=== PATIENT | female | born 1945 | race American Indian/Alaskan Native ===

== ENCOUNTER 2019-07-07 07:14 | Day surgery (SDC) | payer OTHER, MEDICARE ==
[~2019-07-07 07:14] MED LIST: SUBLIMAZE ONE; TETRACAINE 0.5% OD SCH; VERSED ONE
[2019-07-07] MEDS: VIGAMOX OD SCH ×3 (08:05→08:15)
[2019-07-07] MEDS: AK-Dilate OD SCH ×3 (08:05→08:15)
[2019-07-07] MEDS: MYDRIACYL OD SCH ×3 (08:05→08:15)
--- NOTE | 2019-07-07 08:20 | Anesthesia Day of Surgery ---
Anesthesia Day of Surgery - Day of Surgery Patient Examined: Yes Patient H&P Reviewed: Yes Patient is NPO: Yes
--- NOTE | 2019-07-07 08:25 | Anesthesia Consultation ---
Anesthesia Consult and Med Hx Date of service: 07/07/19 - Pulmonary Hx Smoking: No Hx Sleep Apnea: No (RYLEY PRE SCREEN LOW RISK) - Cardiovascular System Hx Hypertension: Yes (X 5) Hx Heart Murmur: Yes ( CHILD) - Gastrointestinal Hx Gastroesophageal Reflux Disease: Yes - Hematic Hx Anemia: Yes (NOT RECENT) - Other Systems Hx Cancer: No - Additional Comments Anesthesia Medical History Comments: PONV
[2019-07-07] MEDS ORDERED: ZOFRAN ONE (08:43)
[2019-07-07] MEDS ORDERED: PRED FORTE 1% OD NR (09:00)
--- NOTE | 2019-07-07 09:01 | Operative Report ---
Operative Report Operative Report: PATIENT'S NAME: DATE OF : DATE OF SURGERY: 07/07/2019 PREOPERATIVE DIAGNOSIS: Cataract right eye POSTOPERATIVE DIAGNOSIS: Same OPERATIVE PROCEDURE: Phacoemulsification with intraocular lens implantation, right eye SURGEON: Aditi Schultz M.D. AUTO PORTER SURGEON: Maggi Lens: [id number] 21.0 D ANESTHESIA: Monitored anesthesia care in combination with topical and intracameral anesthesia because of the established specific risk of reflux, arrhythmias, or anxiety attacks associated with ocular manipulation, as well as the difficulty of the astronomy professor to manage such potentially catastrophic events while simultaneously attempting to complete the surgical procedure and was deemed necessary for the patient's safety to have an Client Service Manager present during the procedure whenever possible. An Client Service Manager was utilized to regulate the intravenous sedation of the patient so the patient was cooperative yet not asleep in order for the patient to successfully maintain fixation of the eye on the operating light of the microscope. COMPLICATIONS: No surgical complications No blood loss. ALLERGIES: Codeine and latex statin PROGNOSIS: Excellent INDICATIONS FOR SURGERY: The patient is undergoing surgery in the hopes of eliminating or improving these visual difficulties. PROCEDURE: After arriving at the surgery center, the patient was given topical anesthetic and dilating drops, as noted in the record. The patient was then taken into the operating room and given more anesthetic drops. The eyelids, lashes, and lid margins were scrubbed with Betadine solution, and the patient was draped. The Nurse Client Service Manager administered IV sedation and monitored the patient during the procedure. The eye was then fixated with a 0.12, and a stab incision was made in the peripheral clear cornea into the anterior chamber. This was made on my left side. Viscoelastic was next used to fill the anterior chamber. The eye was once again fixated with the 0.12 forceps and a keratome was used make an incision in clear cornea peripherally on my right hand side temporally. The capsule forceps were used to open the central anterior capsule and then make a continuous round capsulotomy. Hydrodissection was carried out utilizing a cannula and balanced salt solution to delineate the cortical material from the capsule and the nucleus from the cortical material. The phaco tip was introduced into the eye and used to remove the anterior cortical material in the area of the capsulotomy. Then the phaco tip was buried into the nucleus, and a chopping instrument was introduced into the eye and used to provide countertraction in the nucleus between this instrument and the phaco tip fracturing the nucleus. This procedure was repeated multiple times, providing multiple small segments of the lens, and then the phaco tip was used to remove each of these segments. An I/A tip was then used to remove the remaining cortex. The anterior chamber was refilled with viscoelastic. An one-piece, acrylic intraocular lens was then placed into an inserting cartridge. The tip of the inserting cartridge was introduced into the keratome incision and into the anterior chamber. The implant was gently advanced through the cartridge and into the eye, where it unfolded, and both haptics were placed in the capsular bag, where it centered nicely and appeared to be well fixated. After placement of the intraocular lens, the I~and~A handpiece was placed back into the eye and used to remove the viscoelastic, including viscoelastic that was behind the optic of the intraocular lens. The anterior chamber was then filled with balanced salt solution, and hydration of the wound was used to cause swelling of the wound and more appropriate watertight closure. When the wound was found to be firm, the patient was asked to comment on how bright the light was. If there was no light perception at all or if the light was substantially dimmer than during the rest of the surgery, the amount of fluid in the eye was decompressed to lower the intraocular pressure until the patient could see the bright light again. This was done to avoid any damage or decreased blood flow to the optic nerve. MEDICATIONS APPLIED AT END OF SURGERY: One drop of Pred Forte and Vigamox The patient was given a shield to wear at night and was instructed not to rub or push on the eye. DISCHARGE SUMMARY: The patient was released in stable condition. The patient and those with the patient were given a written sheet of postoperative instructions and counseling on any abnormal laboratory studies. The patient is to see us tomorrow for follow-up in the office and is to call immediately for any difficulties. Aditi Schultz M.D. Date
--- NOTE | 2019-07-07 09:02 | Short Stay Summary ---
Short Stay Documentation Date of service: 07/07/19 - History H&P: obtained from office - Allergies and Medications Current Medications: Allergies codeine Allergy (Verified 07/06/19 14:48) Vomiting ezetimibe [From Zetia] Allergy (Verified 07/06/19 14:56) MUSCLE STIFFNESS latex Allergy (Verified 07/06/19 14:48) Swelling Zbfgqwd-Uwi-Maq Reductase Inhibitor Allergy (Verified 07/06/19 14:56) MUSCLE STIFFNESS Home Medications Medication Instructions Recorded Confirmed Last Taken Type Calcium Carbonate/Vitamin D3 1 each PO DAILY 07/06/19 07/06/19 07/06/19 History [Caltrate 600 Plus D3 Tablet] Denosumab [Prolia] 60 mg SQ Q2W 07/06/19 07/06/19 07/06/19 History Estradiol [Irma] 1 each TD QWEEK 07/06/19 07/06/19 07/06/19 History Ibuprofen [Motrin] 800 mg PO Q8HR PRN 07/06/19 07/06/19 07/06/19 History Multivit-Min/FA/Lycopen/Lutein 1 each PO DAILY 07/06/19 07/06/19 07/06/19 History [Centrum Silver Tablet] Quinapril HCl [Accupril] 40 mg PO DAILY 07/06/19 07/06/19 07/07/19 06:30 History amLODIPine [Norvasc] 5 mg PO DAILY 07/06/19 07/06/19 07/07/19 06:30 History Active Medications Acetazolamide (Diamox) 500 mg PO ONCE ONE Stop: 07/07/19 09:01 Moxifloxacin HCl (Vigamox) 1 drops OD Q5MIN FARRAH Stop: 07/07/19 15:00 Last Admin: 07/07/19 08:15 Dose: 1 drops Documented by: Phenylephrine HCl (Ak-Dilate) 1 drops OD Q5MIN FARRAH Stop: 07/07/19 15:00 Last Admin: 07/07/19 08:15 Dose: 1 drops Documented by: Prednisolone Acetate (Pred Forte 1%) 1 drops OD ONCE ONE Stop: 07/07/19 09:01 Tetracaine HCl (Tetracaine 0.5%) 1 drops OD Q5M FARRAH Stop: 07/07/19 15:00 Last Admin: 07/07/19 08:04 Dose: 1 drops Documented by: Tropicamide (Mydriacyl) 1 drops OD Q5MIN FARRAH Stop: 07/07/19 15:00 Last Admin: 07/07/19 08:15 Dose: 1 drops Documented by: - Brief post op/procedure progress note Date of procedure: 07/07/19 Pre-op diagnosis: right cataract Post-op diagnosis: same Procedure: Phacoemulsification with intraocular lens insertion right eye Anesthesia: MAC, local Surgeon: KASH OSORIO Estimated blood loss: none Pathology: none Condition: stable - Disposition Condition at discharge: Good Disposition: DC-01 TO HOME OR SELFCARE - Discharge Diagnoses (1) Cortical age-related cataract, right eye Status: Resolved Short Stay Discharge Plan Follow up with: RAMOS CHAMPION [Other] - 7 Days
[2019-07-07] MEDS ORDERED: DIAMOX PO ONE (09:30)
[2019-07-07 09:51] VITALS: BP 145/78
--- NOTE | 2019-07-07 20:18 | Post Anesthesia Evaluation ---
- Post Anesthesia Evaluation Patient Participated: Yes Airway Patent: Yes Stable Respiratory Function: Yes Nausea/Vomiting: No Temp > 96.8F: Yes Pain Manageable: Yes Adequeate Hydration: Yes Anesthesia Complications: No Block Receding Appropriately: Not Applicable Patient on Ventilator: No
== END 2019-07-07 09:55 | disposition home or self-care (01) ==
LOC: OR 07:14
DX: H25.011 Cortical age-related cataract, right eye (principal); E78.00 Pure hypercholesterolemia, unspecified; I10 Essential (primary) hypertension; Z88.5 Allergy status to narcotic agent; Z91.040 Latex allergy status; Z79.899 Other long term (current) drug therapy; Z98.890 Other specified postprocedural states; Z90.710 Acquired absence of both cervix and uterus; Z86.2 Personal history of diseases of the blood and blood-forming organs and certain disorders involving the immune mechanism; Z88.8 Allergy status to other drugs, medicaments and biological substances
CPT/HCPCS: 66984; J2250; J2405; J3010; V2632

== ENCOUNTER 2019-07-21 06:39 | Day surgery (SDC) | payer OTHER, MEDICARE ==
[~2019-07-21 06:39] MED LIST changes: -SUBLIMAZE ONE; -TETRACAINE 0.5% OD SCH; +TETRACAINE 0.5% OS SCH; -VERSED ONE
--- NOTE | 2019-07-21 07:14 | Anesthesia Day of Surgery ---
Anesthesia Day of Surgery - Day of Surgery Patient Examined: Yes Patient H&P Reviewed: Yes Patient is NPO: Yes
[2019-07-21] MEDS: MYDRIACYL OS SCH ×3 (07:15→07:25)
[2019-07-21] MEDS: AK-Dilate OS SCH ×3 (07:15→07:25)
[2019-07-21] MEDS: VIGAMOX OS SCH ×3 (07:15→07:25)
--- NOTE | 2019-07-21 07:15 | Anesthesia Consultation ---
Anesthesia Consult and Med Hx Date of service: 07/21/19 - Airway Anesthetic Teeth Evaluation: Good ROM Head & Neck: Adequate Mental/Hyoid Distance: Adequate Mallampati Class: Class II Intubation Access Assessment: Good - Pre-Operative Health Status ASA Pre-Surgery Classification: ASA2 Proposed Anesthetic Plan: MAC - Cardiovascular System Hx Hypertension: Yes (2013) Hx Heart Murmur: Yes - Central Nervous System Hx Psychiatric Problems: No - Gastrointestinal Hx Gastroesophageal Reflux Disease: Yes - Additional Comments Anesthesia Medical History Comments: Had other eye done here two weeks ago. PONV-give Zofran
[2019-07-21] MEDS ORDERED: VERSED ONE (07:30)
[2019-07-21] MEDS ORDERED: SUBLIMAZE ONE (07:30)
--- NOTE | 2019-07-21 08:16 | Operative Report ---
Operative Report Operative Report: PATIENT'S NAME: DATE OF : DATE OF SURGERY: 07/21/2019 PREOPERATIVE DIAGNOSIS: Cataract left eye POSTOPERATIVE DIAGNOSIS: Same OPERATIVE PROCEDURE: Phacoemulsification with intraocular lens implantation, left eye SURGEON: Aditi Schultz M.D. SOLE MOLDING MACHINE OPERATOR SURGEON: Maggi Lens: [id number] 21.5 D ANESTHESIA: Monitored anesthesia care in combination with topical and intracameral anesthesia because of the established specific risk of reflux, arrhythmias, or anxiety attacks associated with ocular manipulation, as well as the difficulty of the lumber stacker to manage such potentially catastrophic events while simultaneously attempting to complete the surgical procedure and was deemed necessary for the patient's safety to have an Tool And Die Maker Level Five present during the procedure whenever possible. An Tool And Die Maker Level Five was utilized to regulate the intravenous sedation of the patient so the patient was cooperative yet not asleep in order for the patient to successfully maintain fixation of the eye on the operating light of the microscope. COMPLICATIONS: No surgical complications No blood loss. ALLERGIES: Codeine latex statin PROGNOSIS: Excellent INDICATIONS FOR SURGERY: The patient is undergoing surgery in the hopes of eliminating or improving these visual difficulties. PROCEDURE: After arriving at the surgery center, the patient was given topical anesthetic and dilating drops, as noted in the record. The patient was then taken into the operating room and given more anesthetic drops. The eyelids, lashes, and lid margins were scrubbed with Betadine solution, and the patient was draped. The Nurse Tool And Die Maker Level Five administered IV sedation and monitored the patient during the procedure. The eye was then fixated with a 0.12, and a stab incision was made in the peripheral clear cornea into the anterior chamber. This was made on my left side. Viscoelastic was next used to fill the anterior chamber. The eye was once again fixated with the 0.12 forceps and a keratome was used make an incision in clear cornea peripherally on my right hand side temporally. The capsule forceps were used to open the central anterior capsule and then make a continuous round capsulotomy. Hydrodissection was carried out utilizing a cannula and balanced salt solution to delineate the cortical material from the capsule and the nucleus from the cortical material. The phaco tip was introduced into the eye and used to remove the anterior cortical material in the area of the capsulotomy. Then the phaco tip was buried into the nucleus, and a chopping instrument was introduced into the eye and used to provide countertraction in the nucleus between this instrument and the phaco tip fracturing the nucleus. This procedure was repeated multiple times, providing multiple small segments of the lens, and then the phaco tip was used to remove each of these segments. An I/A tip was then used to remove the remaining cortex. The anterior chamber was refilled with viscoelastic. An one-piece, acrylic intraocular lens was then placed into an inserting cartridge. The tip of the inserting cartridge was introduced into the keratome incision and into the anterior chamber. The implant was gently advanced through the cartridge and into the eye, where it unfolded, and both haptics were placed in the capsular bag, where it centered nicely and appeared to be well fixated. After placement of the intraocular lens, the I~and~A handpiece was placed back into the eye and used to remove the viscoelastic, including viscoelastic that was behind the optic of the intraocular lens. The anterior chamber was then filled with balanced salt solution, and hydration of the wound was used to cause swelling of the wound and more appropriate watertight closure. When the wound was found to be firm, the patient was asked to comment on how bright the light was. If there was no light perception at all or if the light was substantially dimmer than during the rest of the surgery, the amount of fluid in the eye was decompressed to lower the intraocular pressure until the patient could see the bright light again. This was done to avoid any damage or decreased blood flow to the optic nerve. MEDICATIONS APPLIED AT END OF SURGERY: One drop of Pred Forte and Vigamox The patient was given a shield to wear at night and was instructed not to rub or push on the eye. DISCHARGE SUMMARY: The patient was released in stable condition. The patient and those with the patient were given a written sheet of postoperative instructions and counseling on any abnormal laboratory studies. The patient is to see us tomorrow for follow-up in the office and is to call immediately for any difficulties. Aditi Schultz M.D. Date
--- NOTE | 2019-07-21 08:17 | Short Stay Summary ---
Short Stay Documentation Date of service: 07/21/19 - History H&P: obtained from office - Allergies and Medications Current Medications: Allergies codeine Allergy (Verified 07/20/19 10:43) Vomiting ezetimibe [From Zetia] Allergy (Verified 07/20/19 10:43) MUSCLE STIFFNESS latex Allergy (Verified 07/20/19 10:43) Swelling Mefoajy-Ngi-Bfi Reductase Inhibitor Allergy (Verified 07/20/19 10:43) MUSCLE STIFFNESS Home Medications Medication Instructions Recorded Confirmed Last Taken Type Calcium Carbonate/Vitamin D3 1 each PO DAILY 07/06/19 07/20/19 07/06/19 History [Caltrate 600 Plus D3 Tablet] Denosumab [Prolia] 60 mg SQ Q2W 07/06/19 07/20/19 07/06/19 History Estradiol [Irma] 1 each TD QWEEK 07/06/19 07/20/19 07/06/19 History Ibuprofen [Motrin] 800 mg PO Q8HR PRN 07/06/19 07/20/19 07/06/19 History Multivit-Min/FA/Lycopen/Lutein 1 each PO DAILY 07/06/19 07/20/19 07/06/19 History [Centrum Silver Tablet] Quinapril HCl [Accupril] 40 mg PO DAILY 07/06/19 07/20/19 07/07/19 06:30 History amLODIPine [Norvasc] 5 mg PO DAILY 07/06/19 07/20/19 07/07/19 06:30 History Active Medications Acetazolamide (Diamox) 500 mg PO ONCE ONE Stop: 07/21/19 08:16 Moxifloxacin HCl (Vigamox) 1 drops OS Q5MIN FARRAH Stop: 07/21/19 23:59 Phenylephrine HCl (Ak-Dilate) 1 drops OS Q5MIN FARRAH Stop: 07/21/19 23:59 Prednisolone Acetate (Pred Forte 1%) 1 drops OS ONCE NR Tetracaine HCl (Tetracaine 0.5%) 1 drops OS Q5M FARRAH Stop: 07/21/19 23:59 Tropicamide (Mydriacyl) 1 drops OS Q5MIN FARRAH Stop: 07/21/19 23:59 - Brief post op/procedure progress note Date of procedure: 07/21/19 Pre-op diagnosis: left cataract Post-op diagnosis: same Procedure: Phacoemulsification with intraocular lens insertion left eye Anesthesia: MAC, local Surgeon: KASH OSORIO Estimated blood loss: none Pathology: none Condition: stable - Disposition Condition at discharge: Good Disposition: DC-01 TO HOME OR SELFCARE - Discharge Diagnoses (1) Cortical age-related cataract, left eye Status: Resolved Short Stay Discharge Plan Follow up with: RAMOS CHAMPION MD [Primary Care Provider] - 7 Days
[2019-07-21] MEDS ORDERED: ZOFRAN ONE (08:35)
[2019-07-21] MEDS ORDERED: NACL 0.9% 1000 ML 1,000 ML ONE (08:48)
[2019-07-21] MEDS: APRESOLINE IV PRN ×2 (08:50→09:20)
[2019-07-21] MEDS ORDERED: PRED FORTE 1% OS NR (09:00)
[2019-07-21] MEDS ORDERED: DIAMOX PO ONE (09:30)
[2019-07-21 12:19] VITALS: BP 152/70
[2019-07-21] MEDS ORDERED: NACL 0.9% 1000 ML 1,000 ML IV SCH (13:00)
== END 2019-07-21 10:20 | disposition home or self-care (01) ==
LOC: OR 06:39
DX: H25.012 Cortical age-related cataract, left eye (principal); E78.00 Pure hypercholesterolemia, unspecified; I10 Essential (primary) hypertension; K21.9 Gastro-esophageal reflux disease without esophagitis; Z90.710 Acquired absence of both cervix and uterus; Z98.890 Other specified postprocedural states; Z79.899 Other long term (current) drug therapy; Z88.5 Allergy status to narcotic agent; Z91.040 Latex allergy status; Z98.41 Cataract extraction status, right eye; Z88.8 Allergy status to other drugs, medicaments and biological substances
CPT/HCPCS: 66984; J0360; J2250; J2405; J3010; J7030; V2632